=== PATIENT | male | born 1930 | race Caucasian/White ===

== ENCOUNTER → 2016-09-02 | Outpatient (CLI) | payer MEDICARE, OTHER ==
[~2016-09-02] MED LIST: FLOMAX0.4 MG PO; MULTIVITAMINS1 EAC1 PO; VITAMIN B-1000 MCG/1 IM; VITAMIN B-12250 MCG PO; VITAMIN D31000 UNIT PO
== END | disposition short-term general hospital (02) ==
LOC: CLONCO 09:29
DX: D47.2 Monoclonal gammopathy (principal); D64.9 Anemia, unspecified; R59.1 Generalized enlarged lymph nodes

== ENCOUNTER → 2016-11-12 | Outpatient (CLI) | payer MEDICARE, OTHER | END | disposition short-term general hospital (02) | LOC: CLUROL 12:51 | DX: N40.1 Benign prostatic hyperplasia with lower urinary tract symptoms (principal); N13.8 Other obstructive and reflux uropathy; R35.1 Nocturia ==

== ENCOUNTER → 2017-03-18 | Outpatient (CLI) | payer MEDICARE, OTHER | END | disposition short-term general hospital (02) | LOC: CLONCO 07:08 | DX: D47.2 Monoclonal gammopathy (principal); R59.1 Generalized enlarged lymph nodes ==